=== PATIENT | female | born 1990 | race Two or more races ===

== ENCOUNTER 2020-05-16 21:17 | Emergency (ER) | payer OTHER ==
[~2020-05-16] VITALS: Ht 162.6 cm; Wt 72.7 kg
[2020-05-17] MEDS ORDERED: ACETAMINOPHEN 500 MG TABLET PO ONE (00:15)
[2020-05-17 00:38] VITALS: BP 128/68
== END 2020-05-17 00:45 | disposition home or self-care (01) ==
LOC: EMS 21:17
DX: Z03.818 Encounter for observation for suspected exposure to other biological agents ruled out (principal); R05 Cough; J02.9 Acute pharyngitis, unspecified; M79.10 Myalgia, unspecified site; Z90.89 Acquired absence of other organs; Z88.8 Allergy status to other drugs, medicaments and biological substances; Z91.018 Allergy to other foods
CPT/HCPCS: 71045; 99284; U0003